=== PATIENT | female | born 1995 | race American Indian/Alaskan Native ===

== ENCOUNTER 2022-06-02 21:53 | Emergency (ER) | payer SELFPAY ==
[2022-06-02 22:33] VITALS: BP 135/75
== END 2022-06-03 00:34 | disposition left against medical advice (07) ==
LOC: ED 21:53
DX: R10.2 Pelvic and perineal pain (principal); M79.672 Pain in left foot; M79.671 Pain in right foot; Z53.21 Procedure and treatment not carried out due to patient leaving prior to being seen by health care provider